=== PATIENT | female | born 1955 | race Caucasian/White ===

== ENCOUNTER 2023-05-18 11:24 | Emergency (ER) | payer MEDICARE ==
[2023-05-18] MEDS ORDERED: Ketorolac Tromethamine 10 MG TAB ONE (12:05)
[2023-05-18] MEDS ORDERED: Meclizine HCl 25 MG TAB ONE (12:05)
== END 2023-05-18 12:09 | disposition home or self-care (01) ==
LOC: MADERS 11:24
DX: J06.9 Acute upper respiratory infection, unspecified (principal); R42 Dizziness and giddiness; I10 Essential (primary) hypertension
CPT/HCPCS: 99283